=== PATIENT | male | born 1980 | race Caucasian/White ===

== ENCOUNTER 2024-02-16 10:37 | Emergency (ER) | payer OTHER, SELFPAY ==
[2024-02-16 10:38] VITALS: BP 141/87
--- NOTE | 2024-02-16 11:00 | ED.GENMED ---
History of Present Illness
General
Chief Complaint: DVT/Possible Blood Clot
Source: patient
Exam Limitations: none
Time Seen by Provider: 02/16/24 10:47
Nursing documentation reviewed up to this point in time: agreed with
History of Present Illness
History of Present Illness:
44-year-old male with history of GERD states for about 2 weeks he has had pain in the inner aspect of his left ankle and over the past few days the pain seems to be moving up and today he noted a red area on the inner aspect of mid to upper calf.
He denies chest pain or shortness of breath.
Past History
Past History
ED Past Medical History: GERD
ED Past Surgical History: Other (Oral surgery)
Social History
Tobacco: Non-smoker
Alcohol: Occasional
Personal:
Living: with family
Employment: Employed
Review of Systems
Review of Systems
Allergies reviewed?: Yes
All Other Systems: ROS reviewed and negative except as documented in HPI and ROS
Constitutional: Denies fever
Respiratory: Denies trouble breathing
Cardiac: Denies chest pain
Musculoskeletal: Reports other (Pain left lower leg)
Skin: Reports other (Local area of mild redness mid medial left calf)
Phy Exam
Physical Exam
Physical Exam:
GENERAL: No acute distress. A&Ox3.
CONSTITUTIONAL: Afebrile.
RESPIRATORY: Regular respirations, nonlabored, lungs clear.
CARDIOVASCULAR: Regular rate and rhythm, no murmurs, no rubs.
GI: Soft, nontender, normal BS
MUSCULOSKELETAL: Mild tenderness medial aspect of left ankle up to upper calf area. There is a local mildly red area in the mid to upper calf. Moves with ease. Well perfused.
SKIN: Warm, dry, pink
PSYCH: Normal mood and affect. Well kept, interactive and appropriate
NEUROLOGIC: Awake, alert and oriented. No focal neurological deficits
Course
Orders/Labs/Results
Orders:
Orders
02/16/24 10:40
US Periph Venous LOWER Ext LT Urgent
Comment:
Reason For Exam: pain, discoloration
02/16/24 13:06
Complete Blood Count/With Diff Urgent
Comprehensive Metabolic Panel Urgent
Abnormal Lab Results
02/16/24
13:06
RBC 4.60 L 10^6/uL
(4.70-6.10)
Hct 38.9 L %
(39.0-52.0)
MPV 10.6 H fL
(7.4-10.4)
Chloride 108 H mmol/L
(98-107)
02/16/24 13:06
02/16/24 13:06
Vital Signs
Initial and Last Documented VS:
Initial Vital Signs
Temp Pulse Resp BP Pulse Ox
97.9 F 75 16 141/87 99
02/16/24 10:38 02/16/24 10:38 02/16/24 10:38 02/16/24 10:38 02/16/24 10:38
Last Documented Vital Signs
Temp Pulse Resp BP Pulse Ox
97.9 F 69 18 140/69 98
02/16/24 10:38 02/16/24 14:29 02/16/24 14:29 02/16/24 14:29 02/16/24 14:29
MDM/Problems Addressed
Differential Diagnosis Includes:
DVT, SVT, muscle strain
MDM/Problems Addressed:
44-year-old male with history of GERD states for about 2 weeks he has had pain in the inner aspect of his left ankle and over the past few days the pain seems to be moving up and today he noted a red area on the inner aspect of mid to upper calf.
He denies chest pain or shortness of breath.
12:45 PM ultrasound
Left lower extremity radiology report read: IMPRESSION: No evidence of deep venous thrombosis.
There is, however, occlusive thrombus in the greater saphenous vein at and just above the ankle as well as thrombus in a superficial varicosity in the upper medial left calf
No hx hematologic abnormality, no hx malignancy, no hx DVT/clots
CBC, CMP unremarkable
Spoke with flat knitter Dr. Almonte who states this can go 1 of 2 ways, either aspirin or NSAIDs, warm compresses and follow-up ultrasound in 3 to 5 days or 6 weeks of Eliquis and follow-up with PCP for repeat ultrasound
The services were discussed with patient and his , he states that it is painful to walk but there is no significant swelling, no significant redness and he knows he can return if symptoms worsen, they opted for the more conservative treatment,
no blood thinners at this time.
He knows he can return if symptoms worsen or if he decides to use the blood thinner.
*Critical Care Note
Total Time (30-74mins, 75-104mins- exclusive of procedures): Not Applicable
ED Attending Note
-
Portions of this chart may have been created with voice recognition software.� Occasional wrong word or��sound alike� substitutions may have occurred due to the inherent limitations of voice recognition software.
Discharge Plan
Departure
Patient Disposition: Home (Routine Discharge)
Date of Disposition: 02/16/24
Time of Disposition: 14:15
Patient with high blood pressure during this ER visit?: No
Condition: Good
Discharge Problem:
Acute superficial venous thrombosis of lower extremity
Instructions: Superficial vein phlebitis and thrombosis
Referrals:
Moshe Marie MD [Family Provider] - Follow up in 2-3 days
Activity Restrictions/Additional Instructions:
As we discussed, Baby aspirin (81) daily, Ibuprofen 600 mg up to 3 times a day as needed for pain. Warm compresses, 3 times a day for 15 minutes as much as you can in the next week.
Return here immediately for increasing pain, redness, swelling, fever, chest pain, trouble breathing or anything that concerns you.
See your primary care provider to get a prescription for a repeat ultrasound in 5 to 7 days
You may walk around as usual. No excessive exercise or walking.
Interventions
Interventions:
*Risk Screen - Suicide Last Done: 02/16/24 11:09
*General Assessment Last Done: 02/16/24 10:38
*Neglect/Abuse Screening Last Done: 02/16/24 11:09
ED- Fall Risk Assessment Last Done: 02/16/24 11:09
*ED COVID-19 Vaccine History Last Done: 02/16/24 10:38
*Nursing Disposition Last Done: 02/16/24 14:30
ED- Cardiac Assessment Last Done: 02/16/24 11:09
ED- Pulmonary Assessment Last Done: 02/16/24 11:09
ED-Peripheral Vascular Assessment Last Done: 02/16/24 11:09
ED-Skin Assessment Last Done: 02/16/24 11:09
Discharge Date and Time
Discharge Date/Time: 02/16/24 14:30
Print Language: PORTUGUESE
[2024-02-16 11:09] VITALS: BMI 33.8
[2024-02-16 12:14] VITALS: BP 122/78
[2024-02-16 13:16] LABS: % Basophils 0.9 % (0-2); % Eosinophils 1.7 % (0-6); % Immature Granulocytes 0.3 % (0-0.5); % Lymphocytes 26.9 % (20.5-51.1); % Monocytes 7.5 % (1.7-9.3); % Neutrophils 62.7 % (42.2-75.2); Absolute Basophils 0.1 10^3/uL (0-0.2); Absolute Eosinophils 0.1 10^3/uL (0-0.7); Absolute Lymphocytes 2.1 10^3/uL (1.2-3.4); Absolute Monocytes 0.6 10^3/uL (0.1-0.6); Absolute Neutrophils 4.9 10^3/uL (1.4-6.5); Hematocrit 38.9 % (39.0-52.0); Hemoglobin 13.5 g/dL (13.0-18.0); Mean Corp Hgb Conc. 34.7 g/dL (33.0-37.0); Mean Corpuscular Hgb 29.3 pg (27.0-31.0); Mean Corpuscular Volume 84.6 fL (80.0-94.0); Mean Platelet Volume 10.6 fL (7.4-10.4); Nucleated Red Blood Cells % 0 % (-); Platelet Count 209 10^3/uL (130-400); White Blood Cell Count 7.7 10^3/uL (4.8-10.8)
[2024-02-16 13:27] LABS: ALT (SGPT) 19 U/L (0-50); AST (SGOT) 23 U/L (17-59); Albumin 4.2 g/dl (3.5-5.0); Alkaline Phosphatase 91 U/L (38-126); Blood Urea Nitrogen 17 mg/dl (9-20); Calcium 9.5 mg/dl (8.4-10.2); Carbon Dioxide 24 mmol/L (22-30); Chloride 108 mmol/L (98-107); Estimated Creatinine Clearance 124 ml/min; Glucose 88 mg/dl (70-99); Potassium 4.2 mmol/L (3.5-5.1); Sodium 139 mmol/L (135-145); Total Bilirubin 0.5 mg/dl (0.2-1.3); Total Protein 6.6 g/dl (6.3-8.2); eGFR > 60.00
[2024-02-16 14:29] VITALS: BP 140/69
== END 2024-02-16 14:30 | disposition home or self-care (01) ==
LOC: EMR 10:37
PROVIDERS: Registered Nurse; EMERGENCY PHYSICIAN Emergency Medicine; FAMILY PHYSICIAN Family Medicine
DX: I82.812 Embolism and thrombosis of superficial veins of left lower extremity (principal)
CPT/HCPCS: 99284; 80053; 85025; 93971